=== PATIENT | male | born 1975 | race Caucasian/White ===

== ENCOUNTER 2016-10-27 18:26 | Emergency (ER) | payer OTHER ==
[2016-10-27 19:23] LABS: BILIRUBIN NEGATIVE (NEGATIVE); BLOOD 2+ Ery/uL (NEGATIVE); CLARITY CLEAR (CLEAR); COLOR YELLOW (YELLOW); GLUCOSE (U) NORMAL (NORMAL); KETONE (U) NEGATIVE (NEGATIVE); LEUKOCYTES NEGATIVE Leu/uL (NEGATIVE); NITRITE NEGATIVE (NEGATIVE); PROTEIN NEGATIVE (NEGATIVE); UROBILINOGEN 0.2 mg/dL (0.2-1.0)
[2016-10-27 19:29] LABS: BASOPHIL 0.2 % (0-2); EOSINOPHIL 1.1 % (0-5); HCT 42.4 % (42.0-52.0); HGB 14.3 g/dl (13.2-18.0); LYMPHOCYTE 12.1 % (15-48); MCH 28.3 pg (25.0-31.0); MCHC 33.7 g/dL (32.0-36.0); MPV 10.5 fL (6.0-9.5); NEUTROPHIL 77.6 % (41-80); PLT 233 K/uL (150-400); RBC 5.05 M/uL (4.70-6.00); WBC 10.7 K/uL (4.0-10.5)
[2016-10-27 19:30] LABS: MUCOUS LARGE; SPERM PRESENT
[2016-10-27 19:49] LABS: CREATININE 0.9 mg/dL (0.7-1.2); POTASSIUM 4.2 mmol/L (3.5-5.1)
== END 2016-10-27 20:23 | disposition home or self-care (01) ==
LOC: FER 18:26
PROVIDERS: Emergency Medicine
DX: N20.1 Calculus of ureter (principal); E27.8 Other specified disorders of adrenal gland; Z88.0 Allergy status to penicillin
CPT/HCPCS: 36415; 80048; 81001; 85025; J1885

== ENCOUNTER 2021-08-13 08:46 | Emergency (ER) | payer OTHER ==
[2021-08-13] MEDS ORDERED: ETODOLAC500 MG PO (09:30)
[2021-08-13] MEDS ORDERED: NORCO 5-325 TA1 EACH PO (09:30)
== END 2021-08-13 10:04 | disposition home or self-care (01) ==
LOC: FER 08:46
DX: S30.0XXA Contusion of lower back and pelvis, initial encounter (principal); S20.222A Contusion of left back wall of thorax, initial encounter; Z88.0 Allergy status to penicillin; W11.XXXA Fall on and from ladder, initial encounter; Z28.310 Unvaccinated for COVID-19
CPT/HCPCS: 99283

== ENCOUNTER → 2021-09-03 | Day surgery (SDC) | payer OTHER ==
[~2021-09-03] VITALS: Ht 182.9 cm; Wt 104.3 kg
[~2021-09-03] MED LIST: ETODOLAC500 MG PO; NORCO 5-325 TA1 EACH PO
== END | disposition home or self-care (01) ==
LOC: FAS 13:10
DX: U07.1 COVID-19 (principal)
CPT/HCPCS: U0002

== ENCOUNTER → 2021-09-06 | Day surgery (SDC) | payer OTHER ==
[~2021-09-06] VITALS: Ht 182.9 cm; Wt 104.3 kg
== END | disposition home or self-care (01) ==
LOC: FAS 11:00
DX: I96 Gangrene, not elsewhere classified (principal); F17.200 Nicotine dependence, unspecified, uncomplicated; Z88.0 Allergy status to penicillin
CPT/HCPCS: J1100; J2250; J2405; J2704; J3010; J7120